=== PATIENT | male | born 1955 | race Caucasian/White ===

== ENCOUNTER 2018-12-25 15:53 | Emergency (ER) | payer MEDICARE ==
[2018-12-25] MEDS ORDERED: Meclizine HCl 25 MG TAB ONE (16:26)
[2018-12-25] MEDS ORDERED: Ondansetron PF 4 MG/2 ML Vial ONE (16:26)
[2018-12-25] MEDS ORDERED: Sodium Chloride 0.9% 1,000 ML ONE (16:26)
[2018-12-25 16:27] LABS: #Basophils 0.1 thou/uL (0.0-0.2); #Eosinphils 0.2 thou/uL (0.0-0.7); #Lymphocytes 0.9 thou/uL (1.20-3.40); #Monocytes 0.9 thou/uL (0.11-0.59); #Neutrophils 5.6 thou/uL (1.40-6.50); %Basophils 1.3 % (0.0-1.0); %Eosinophils 2.6 % (0.0-10.0); %Lymphocytes 11.7 % (21.0-51.0); %Monocytes 11.2 % (0.0-10.0); %Neutrophils 73.2 % (42.0-75.0); Hemoglobin 14.8 g/dL (14.0-18.0); Mean Corpuscular HGB CONC 32.9 g/dL (32.0-36.0); Mean Corpuscular Hemoglobin 28.2 pg (27.0-31.0); Mean Corpuscular Volume 85.7 fL (78.0-98.0); Platelet Count 314 thou/uL (130-400); Red Blood Cell (RBC) Count 5.27 mill/uL (4.70-6.10); White Blood Cell (WBC) Count 7.7 thou/uL (4.8-10.8)
--- NOTE | 2018-12-25 16:28 | CT ---
HEAD CT WITHOUT CONTRAST: 12/25/18 HISTORY: Dizziness. FINDINGS: No parenchymal hemorrhage. No extra-axial hematoma. No midline shift. Basilar cisterns are patent. Brain volume age appropriate. Cortical barr-white matter differentiation preserved. Ventricle and sulci are patent and symmetric. Adequate aeration of the sinuses and mastoid air cells. Calvarium is intact. IMPRESSION: No acute intracranial process. POS: [facility]
[2018-12-25 16:43] LABS: ALT (SGPT) 17 U/L (8-55); AST (SGOT) 12 U/L (5-34); Albumin 4.3 g/dL (3.4-4.8); Alkaline Phosphatase 80 U/L (40-150); Anion Gap 12 mmol/L (10-20); BUN (Urea Nitrogen) 20 mg/dL (8.4-25.7); Bilirubin, Total 0.5 mg/dL (0.2-1.2); CK (CPK) 52 U/L (30-200); Calc. Creatinine Clearance 0 mL/min (70-130); Calcium 9.5 mg/dL (7.8-10.44); Carbon Dioxide 24 mmol/L (23-31); Chloride 103 mmol/L (98-107); Estimated GFR-MDRD 78; Globulin 3.3 g/dL (2.4-3.5); Glucose 120 mg/dL (80-115); Lipase 73 U/L (8-78); Potassium 4.7 mmol/L (3.5-5.1); Protein, Total 7.6 g/dL (5.8-8.1); Sodium 134 mmol/L (136-145)
[2018-12-25] MEDS ORDERED: Lorazepam 2 MG/ML VIAL ONE (17:23)
== END 2018-12-25 18:30 | disposition home or self-care (01) ==
LOC: MADERS 15:53
DX: R42 Dizziness and giddiness (principal); R11.2 Nausea with vomiting, unspecified
CPT/HCPCS: 70450; 80053; 82550; 83690; 84484; 85025; 93005; 96361; 96374; 96375; J2060; J2405; J7050; J8499

== ENCOUNTER 2019-03-21 10:53 | Outpatient (CLI) | payer MEDICARE ==
--- NOTE | 2019-03-21 11:53 | RAD ---
RIGHT KNEE 4 VIEWS: Date: 03/21/19 HISTORY: Fall. Right knee pain. FINDINGS/IMPRESSION: No fracture, dislocation, or bony destruction is seen. A joint effusion is present. Mild degenerative changes are noted. POS: [facility]
== END 2019-03-21 10:54 | disposition home or self-care (01) ==
LOC: MADRAD 10:53
PROVIDERS: ATTEND Family Medicine
DX: M25.561 Pain in right knee (principal); M17.11 Unilateral primary osteoarthritis, right knee; M25.461 Effusion, right knee; W18.30XA Fall on same level, unspecified, initial encounter